=== PATIENT | female | born 1970 | race Caucasian/White ===

== ENCOUNTER 2016-11-15 16:20 | Outpatient (CLI) ==
[2016-06-24 17:14] VITALS: BMI 22.1
[2016-11-15 17:31] LABS: BASOPHILS % (AUTO) 0.3 % (0.0-3.0); EOSINOPHILS % (AUTO) 0.5 % (0.0-7.0); HEMATOCRIT 38.5 % (37.0-47.0); HEMOGLOBIN 12.8 g/dl (12.0-16.0); IMMATURE GRANULOCYTE % (AUTO) 0.5 % (0.0-5.0); LYMPHOCYTES # (AUTO) 1.5 K/uL (0.60-3.4); LYMPHOCYTES % (AUTO) 23.4 (10.0-50.0); MEAN CORPUSCULAR HGB CONC 33.2 (31.8-35.4); MEAN CORPUSCULAR VOLUME 84.2 fl (81.0-99.0); MONOCYTES # (AUTO) 0.3 K/uL (0.4-2.0); MONOCYTES % (AUTO) 5.2 (0-10); NEUTROPHILS # (AUTO) 4.4 K/ul (2.0-6.9); NEUTROPHILS % (AUTO) 70.1; PLATELET COUNT 235 10^3/uL (140-440); RED BLOOD COUNT 4.57 10^6/ul (4.20-5.40); WHITE BLOOD COUNT 6.33 K/ul (4.6-10.2)
[2016-11-15 17:43] LABS: OCCULT BLOOD INTERNAL QC 1 INTERNAL QC VALID; OCCULT BLOOD INTERNAL QC 2 INTERNAL QC VALID; OCCULT BLOOD INTERNAL QC 3 INTERNAL QC VALID; OCCULT BLOOD SAMPLE 1 NEGATIVE (NEGATIVE); OCCULT BLOOD SAMPLE 2 NO SPECIMEN RECEIVED (NEGATIVE); OCCULT BLOOD SAMPLE 3 NO SPECIMEN RECEIVED (NEGATIVE)
[2016-11-15 17:55] LABS: ALBUMIN 3.8 g/dL (3.4-5.0); ALBUMIN/GLOBULIN RATIO 1.31; ANION GAP 9.7; BILIRUBIN,TOTAL 0.28 mg/dL (0.00-1.20); BUN/CREATININE RATIO 9.58; CREATININE 0.73 mg/dL (0.60-1.30); POTASSIUM 3.7 mmol/L (3.5-5.10); TOTAL PROTEIN 6.7 g/dL (6.4-8.2)
[2016-11-16 15:12] LABS: BILIRUBIN,URINE Negative (NEGATIVE); KETONES,URINE Negative (NEGATIVE); LEUKOCYTE ESTERASE ,URINE Negative (NEGATIVE); NITRITE,URINE Negative (NEGATIVE); PH,URINE 5.5 (5-9); PROTEIN,URINE Negative (NEGATIVE); URINE, BLOOD Negative (NEGATIVE)
[2016-11-16 15:13] LABS: ADD URINE MICROSCOPIC NO
== END 2016-11-15 16:21 | disposition home or self-care (01) ==
LOC: LAB 16:20
PROVIDERS: ATTEND General Practice
DX: R10.9 Unspecified abdominal pain (principal); R11.10 Vomiting, unspecified; R63.0 Anorexia; R19.7 Diarrhea, unspecified
CPT/HCPCS: 36415; 80053; 81001; 82272; 85025

== ENCOUNTER 2016-11-16 14:25 | Outpatient (CLI) ==
[2016-06-24 17:14] VITALS: BMI 22.1
== END 2016-11-16 14:26 | disposition home or self-care (01) ==
LOC: LAB 14:25
PROVIDERS: ATTEND General Practice
DX: R10.9 Unspecified abdominal pain (principal); R11.10 Vomiting, unspecified; R63.0 Anorexia

== ENCOUNTER 2016-11-18 18:15 | Outpatient (CLI) | payer OTHER ==
[2016-06-24 17:14] VITALS: BMI 22.1
[2016-11-18] MEDS ORDERED: D5%-NS-KCL 20 MEQ/L IV SOL 1,000 ML IV STA (18:28)
[2016-11-18 18:44] VITALS: BP 98/63; TEMP 97.6
== END 2016-11-18 22:35 | disposition home or self-care (01) ==
LOC: OUTPT 18:15
PROVIDERS: ATTEND General Practice
DX: E86.0 Dehydration (principal)
CPT/HCPCS: 96360; 96361

== ENCOUNTER 2016-12-09 11:03 | Outpatient (CLI) ==
[2016-06-24 17:14] VITALS: BMI 22.1
[2016-12-09 13:17] LABS: BILIRUBIN,URINE Negative (NEGATIVE); KETONES,URINE Negative (NEGATIVE); LEUKOCYTE ESTERASE ,URINE Negative (NEGATIVE); NITRITE,URINE Negative (NEGATIVE); PROTEIN,URINE Negative (NEGATIVE); URINE, BLOOD Negative (NEGATIVE)
[2016-12-09 13:19] LABS: ADD URINE MICROSCOPIC NO
== END 2016-12-09 11:04 | disposition home or self-care (01) ==
LOC: LAB 11:03
PROVIDERS: ATTEND General Practice
DX: R10.9 Unspecified abdominal pain (principal)
CPT/HCPCS: 81001

== ENCOUNTER 2017-04-27 09:39 | Outpatient (CLI) ==
[2016-06-24 17:14] VITALS: BMI 22.1
[2017-04-27 10:06] LABS: BASOPHILS % (AUTO) 0.4 % (0.0-3.0); EOSINOPHILS % (AUTO) 0.5 % (0.0-7.0); HEMATOCRIT 44.4 % (37.0-47.0); HEMOGLOBIN 14.4 g/dl (12.0-16.0); IMMATURE GRANULOCYTE % (AUTO) 0.2 % (0.0-5.0); LYMPHOCYTES # (AUTO) 1.8 K/uL (0.60-3.4); LYMPHOCYTES % (AUTO) 31.7 (10.0-50.0); MEAN CORPUSCULAR HGB CONC 32.4 (31.8-35.4); MEAN CORPUSCULAR VOLUME 86.2 fl (81.0-99.0); MONOCYTES # (AUTO) 0.4 K/uL (0.4-2.0); MONOCYTES % (AUTO) 6.7 (0-10); NEUTROPHILS # (AUTO) 3.4 K/ul (2.0-6.9); NEUTROPHILS % (AUTO) 60.5; PLATELET COUNT 264 10^3/uL (140-440); RED BLOOD COUNT 5.15 10^6/ul (4.20-5.40); WHITE BLOOD COUNT 5.68 K/ul (4.6-10.2)
[2017-04-27 10:16] LABS: ALBUMIN 4.2 g/dL (3.4-5.0); ALBUMIN/GLOBULIN RATIO 1.17; ANION GAP 14.8; BILIRUBIN,TOTAL 0.53 mg/dL (0.00-1.20); BUN/CREATININE RATIO 10.97; CALCIUM 10.2 mg/dL (8.2-10.2); CREATININE 0.82 mg/dL (0.60-1.30); POTASSIUM 3.8 mmol/L (3.5-5.10); TOTAL PROTEIN 7.8 g/dL (6.4-8.2)
[2017-04-27 10:19] LABS: BILIRUBIN,URINE Negative (NEGATIVE); KETONES,URINE Negative (NEGATIVE); LEUKOCYTE ESTERASE ,URINE Negative (NEGATIVE); NITRITE,URINE Negative (NEGATIVE); PROTEIN,URINE Negative (NEGATIVE); URINE, BLOOD Trace-intact (NEGATIVE)
[2017-04-27 10:30] LABS: ADD URINE MICROSCOPIC YES
--- NOTE | 2017-04-27 10:37 | CT ---
EXAM: CT of the abdomen pelvis without contrast History: Generalized abdominal pain. Comparison: CT abdomen pelvis 06/24/2016 Technique: Multiplanar CT images through the abdomen pelvis were obtained without the administration of IV contrast Findings: Lung bases are free of consolidation. No acute osseous abnormalities. No renal stones and no hydronephrosis. Previous cholecystectomy. No focal liver or splenic lesions. No peripancreatic inflammation. Adrenal glands are unremarkable. Postsurgical changes of the kol[place] l. There are a few mildly dilated loops of small bowel within the left abdomen, similar in appearanc e to the prior study. No free air. No ascites. Bladder is not well distended. Adnexal structures appear appropriate for patient's age. No perirectal inflammation. Impression: A few mildly dilated loops of small bowel within the left abdomen, similar appearance to the prior study could represent ileus or mild enteritis. An early developing partial small bowel obs truction is considered less likely but not excluded.
== END 2017-04-27 09:40 | disposition home or self-care (01) ==
LOC: RAD 09:39
PROVIDERS: ATTEND Nurse Practitioner Family
DX: R10.84 Generalized abdominal pain (principal); R11.2 Nausea with vomiting, unspecified
CPT/HCPCS: 36415; 80053; 81001; 82150; 83690; 85025

== ENCOUNTER 2017-11-29 19:41 | Emergency (ER) | payer OTHER ==
[2017-11-29 19:46] VITALS: BP 118/79; TEMP 98.6; BMI 22.2
[2017-11-29] MEDS ORDERED: DUONEB NEB STA (19:54)
[2017-11-29] MEDS ORDERED: ROCEPHIN 1 GM in SODIUM CHLORIDE 50 ML IV STA (19:54)
[2017-11-29] MEDS ORDERED: ROCEPHIN ONE (20:29)
--- NOTE | 2017-11-29 21:07 | CT ---
EXAM: CT chest without contrast HISTORY: Chest pain, productive cough COMPARISON: Chest, 06/24/2016 TECHNIQUE: Serial axial images of the chest were obtained from the lung apices to the upper abdomen without contrast. These were viewed in multiple planes. Axial scans acquired at 5 mm slice thickness es. MPR coronal and sagittal sequences completed FINDINGS: The thyroid is normal. There is no mediastinal or hilar adenopathy within limitations of a noncontrast CT. There is no cardiac enlargement. There is a small amount of coronary artery calci fication both right coronary and left anterior descending and circumflex coronary arteries. There is no obstruction of the trachea or central bronchi. No pulmonary emphysema is seen. There is no pulm onary consolidation or pneumonia seen. Some atelectasis in the lingular lobe and left lower lobe. There is no adrenal enlargement. Postsurgical changes seen left upper quadrant. Impression No pulmonary consolidation or lobar pneumonia. No pulmonary edema is seen. Minimal atelectasis lingular lobe and left lower lobe. Multiple coronary artery calcifications without cardiac enlargement.
--- NOTE | 2017-11-29 22:35 | ED.PDOC ---
General ED Provider: Dr. SELVIN OSEGUERA-ER Chief Complaint: Shortness of Air Stated Complaint: im coughing up brown sputum Time Seen by Physician: 19:55 Mode of Arrival: Walk-In Information Source: Patient, Assisted Living Primary Care Provider: [facility] Nursing and Triage Documentation Reviewed and Agree: Yes Reviewed sepsis parameters & appropriate labs ordered?: Yes System Inflammatory Response Syndrome: Not Applicable Sepsis Protocol: For patient's 13 years and over: Temp is 96.8 and below OR 101 and greater Pulse >90 BPM Resp >20/minute Acutely Altered Mental Status Are patient's symptoms suggestive of a new infection, such as: -Pneumonia -Skin, Soft Tissue -Endocarditis -UTI -Bone, Joint Infection -Implantable Device -Acute Abdominal Infection -Wound Infection -Meningitis -Blood Stream Catheter Infection -Unknown Respiratory Complaint Exam - Respiratory Complaint/Exam Onset/Duration: 3 dyas Symptoms Are: Still present Timing: Intermittent Initial Severity: Mild Current Severity: Mild Character: Reports: Productive cough Aggravating: Reports: URI Associated Signs and Symptoms: Reports: URI. Denies: Rapid breathing, Dyspnea, Fever, Chills, Chest pain, Wheezing, Hemoptysis, Dizziness, Calf swelling, Edema , Nasal congestion, Hoarseness Differential Diagnoses: Chest Wall Pain, Pneumonia, Bronchitis Review of Systems - Review Of Systems Constitutional: Reports: No symptoms Eyes: Reports: No symptoms Ears, Nose, Mouth, Throat: Reports: No symptoms Respiratory: Reports: Cough Cardiac: Reports: No symptoms GI: Reports: No symptoms : Reports: No symptoms Musculoskeletal: Reports: No symptoms Skin: Reports: No symptoms Neurological: Reports: No symptoms Endocrine: Reports: No symptoms Hematologic/Lymphatic: Reports: No symptoms All Other Systems: Reviewed and Negative Past Medical History - Past Medical History Previously Healthy: Yes Endocrine: Reports: DM 2 Cardiovascular: Reports: Other (Hypotension. ) Respiratory: Reports: None Hematological: Reports: Anemia Gastrointestinal: Reports: None Genitourinary: Reports: None Neuro/Psych: Reports: Anxiety, Depression, Bipolar Disorder, Schizophrenia Musculoskeletal: Reports: None Cancer: Reports: None Last Menstrual Period: none - Surgical History General Surgical History: Reports: Tubal ligation, (x2 ), Cholecystectomy, Orthopedic ( right bunionectomy. ), Gastric Bypass - Family History Family History: Reports: None - Social History Smoking Status: Current every day smoker, Heavy tobacco smoker Hx Substance Use: No Alcohol Screening: None Physical Exam - Physical Exam Appearance: Well-appearing Eyes: ALEKSANDR, EOMI, Conjunctiva clear ENT: Ears normal, Nose normal, Oropharynx normal Neck: Supple Respiratory: Crackles, Rhonchi Cardiovascular: RRR, Pulses normal, No rub, No murmur GI/: Soft, Nontender, No masses, Bowel sounds normal, No Organomegaly Musculoskeletal: Normal strength, ROM intact, No edema, No calf tenderness Skin: Warm, Dry, Normal color Neurological: Sensation intact Psychiatric: Affect appropriate, Mood appropriate Interpretation - Radiology Interpretation Radiology Interpretation By: Radiologist Radiology Results: Negative Exam Interpreted: CT Scan - EKG Interpretation Time of EKG #1: 22:35 Rate: Normal Rhythm: Sinus Ectopy: None [place]: NL ST Segment: Normal Interpretation: nsr Critical Care Note - Critical Care Note Total Time (mins): 0 Course - Course Hematology/Chemistry: 11/29/17 20:05 11/29/17 20:05 Orders, Labs, Meds: Lab Review 11/29/17 11/29/17 11/29/17 19:52 19:56 19:56 WBC RBC Hgb Hct MCV MCH MCHC RDW Coeff of Wayne Plt Count Immature Gran % (Auto) Neut % (Auto) Lymph % (Auto) Ector % (Auto) Eos % (Auto) Baso % (Auto) Immature Gran # (Auto) Neut # (Auto) Lymph # (Auto) Ector # (Auto) Eos # (Auto) Baso # (Auto) D-Dimer (Manual) Puncture Site Lb O2 Saturation 100.0 ABG pH 7.629 H* ABG pCO2 22.2 L ABG pO2 148.0 H ABG HCO3 23.3 ABG Total CO2 24 ABG Base Excess 2 [place] Test + FiO2 % 21.0 Sodium Potassium Chloride Carbon Dioxide Anion Gap BUN Creatinine Estimated GFR (MDRD) BUN/Creatinine Ratio Glucose Calcium Total Bilirubin AST ALT Alkaline Phosphatase Total Creatine Kinase Troponin I Total Protein Albumin Globulin Albumin/Globulin Ratio Urine Test Negative Influ A Molecular Assay Negative by naat Influ B Molecular Assay Negative by naat 11/29/17 11/29/17 11/29/17 20:05 20:05 20:05 WBC 6.13 RBC 4.51 Hgb 12.4 Hct 38.0 MCV 84.3 MCH 27.5 MCHC 32.6 RDW Coeff of Wayne 14.8 Plt Count 234 Immature Gran % (Auto) 0.3 Neut % (Auto) 58.9 Lymph % (Auto) 33.6 Ector % (Auto) 6.7 Eos % (Auto) 0.3 Baso % (Auto) 0.2 Immature Gran # (Auto) 0.0 Neut # (Auto) 3.6 Lymph # (Auto) 2.1 Ector # (Auto) 0.4 Eos # (Auto) 0.0 Baso # (Auto) 0.0 D-Dimer (Manual) 409.50 Puncture Site O2 Saturation ABG pH ABG pCO2 ABG pO2 ABG HCO3 ABG Total CO2 ABG Base Excess [place] Test FiO2 % Sodium 141 Potassium 3.3 L Chloride 107 Carbon Dioxide 24 Anion Gap 13.3 BUN 4 L Creatinine 0.66 Estimated GFR (MDRD) 96.00 BUN/Creatinine Ratio 6.06 Glucose 60 L Calcium 9.2 Total Bilirubin 0.3 AST 17 ALT 11 L Alkaline Phosphatase 134 H Total Creatine Kinase 96 Troponin I < 0.0100 Total Protein 6.8 Albumin 3.4 Globulin 3.4 Albumin/Globulin Ratio 1.00 Urine Test Influ A Molecular Assay Influ B Molecular Assay Orders Category Date Time Status ABG DRAW REQUEST Stat CARDIO 11/29/17 19:52 Completed EKG-(ED ONLY) Stat CARDIO 11/29/17 19:52 Completed NEBULIZER TREATMENT Stat CARDIO 11/29/17 19:54 Completed ED IV/MEDIPORT/POWERPORT .ONCE EMERGENCY 11/29/17 19:53 Active ABG Stat LAB 11/29/17 19:52 Completed BLOOD CULTURE (ED ONLY) Stat LAB 11/29/17 20:11 Received CBC W/ AUTO DIFF Stat LAB 11/29/17 20:05 Completed COMPREHENSIVE METABOLIC PANEL Stat LAB 11/29/17 20:05 Completed CREATINE KINASE Stat LAB 11/29/17 20:05 Completed D-DIMER Stat LAB 11/29/17 20:05 Completed FLU A/B MOLECULAR Stat LAB 11/29/17 19:56 Completed TROPONIN I Stat LAB 11/29/17 20:05 Completed URINE Stat LAB 11/29/17 19:56 Completed 0.9 % Sodium Chloride [Saline Flush] MEDS 11/29/17 19:53 Ordered 1 syr IVF PRN PRN Ceftriaxone Sodium [Rocephin] MEDS 11/29/17 20:29 Discontinued 1 gm .ROUTE .STK-MED ONE Ceftriaxone Sodium [Rocephin] 1 gm MEDS 11/29/17 19:54 Discontinued 0.9 % Sodium Chloride [Sodium Chloride] 50 ml IV ONCE Ipratropium/Albuterol Neb [Duoneb] MEDS 11/29/17 19:54 Discontinued 1 vial NEB ONCE STA CT CHEST W/O CONTRAST Stat RADS 11/29/17 19:53 Completed Medications Generic Name Dose Route Start Last Admin Trade Name Freq PRN Reason Stop Dose Admin Sodium Chloride 1 syr 11/29/17 19:53 Saline Flush IVF PRN PRN To flush IV Discontinued Medications Generic Name Dose Route Start Last Admin Trade Name Freq PRN Reason Stop Dose Admin Albuterol/Ipratropium 1 vial 11/29/17 19:54 11/29/17 20:27 Duoneb NEB 11/29/17 19:55 1 vial ONCE STA Administration Ceftriaxone Sodium 1 gm/ 50 mls @ 75 mls/hr 11/29/17 19:54 11/29/17 20:33 Sodium Chloride IV 11/29/17 20:33 75 mls/hr ONCE STA Administration Vital Signs: Temp Pulse Resp BP Pulse Ox 11/29/17 19:41 98.6 F 85 20 118/79 98 Departure - Departure Time of Disposition: 22:35 Disposition: HOME SELF-CARE Discharge Problem: Bronchitis Instructions: Acute Bronchitis (ED) Condition: Good Pt referred to PMD for follow-up: Yes IPMP verified?: No Additional Instructions: augmentin 875mg bid x 7days plus mdp=--avoid cigs--f/u with pcp Allergies/Adverse Reactions: Allergies No Known Drug Allergies Adverse Reaction (Verified 11/29/17 19:45) Home Medications: Ambulatory Orders Multivit-Min/Iron/Folic/Lutein [Centrum Silver Women Tablet] 1 each PO DAILY 04/22 Docusate Sodium [Stool Softener] 100 mg PO TID #90 tab-cap 05/23/17 Alprazolam 1 mg PO QID 05/24/17 Escitalopram Oxalate [Lexapro] 10 mg PO DAILY 05/24/17 Trazodone HCl 100 mg PO BEDTIME 05/24/17 Venlafaxine HCl [Effexor Xr] 150 mg PO DAILY 05/24/17 Ziprasidone HCl 40 mg PO DAILY 05/24/17 Omeprazole [Prilosec] 20 mg PO QDAC 11/29/17 Disposition Discussed With: Patient
== END 2017-11-29 22:40 | disposition home or self-care (01) ==
LOC: ED 19:41
DX: J20.9 Acute bronchitis, unspecified (principal); F17.210 Nicotine dependence, cigarettes, uncomplicated
CPT/HCPCS: 36415; 80053; 81025; 82550; 82803; 84484; 85025; 85379; 87040; 87502; 93005; 93010; 94640; 96365; 99283

== ENCOUNTER 2018-08-23 09:04 | Outpatient (CLI) ==
--- NOTE | 2018-08-23 09:46 | CT ---
EXAM: CT of the head without contrast History: Head trauma. Technique: Multiplanar CT images through the head were obtained without the administration of IV con trast Findings: The visualized paranasal sinuses and mastoid air cells are clear in general. No acute anjelica varial abnormalities. Intracranially the ventricular and cisternal spaces are normal in size, shape and configuration for a patient of this age. No dominant mass or midline shift. No hydrocephalous. No acute intracranial hemorrhage or abnormal extraaxial fluid collections. Impression: No acute intracranial process.
--- NOTE | 2018-08-23 09:50 | DI ---
EXAM: Five views of the lumbar spine. History: Lower back trauma. Findings: No acute fracture or subluxation of the lumbar spine. Six lumbar type vertebral bodies. Moderate disc space narrowing at L6, S1. Mild to moderate disc space narrowing seen elsewhere. Ther e is moderate facet hypertrophy within the lower lumbar spine. Prominent anterior osteophyte at L2-L 3. Impression: 1. No acute osseous abnormality of the lumbar spine. 2. Degenerative changes
== END 2018-08-23 09:05 | disposition home or self-care (01) ==
LOC: RAD 09:04
PROVIDERS: ATTEND General Practice
DX: M79.89 Other specified soft tissue disorders (principal); R60.0 Localized edema; R53.83 Other fatigue; R52 Pain, unspecified; T14.8XXA Other injury of unspecified body region, initial encounter; M54.9 Dorsalgia, unspecified; Z79.899 Other long term (current) drug therapy; Z13.6 Encounter for screening for cardiovascular disorders; W19.XXXA Unspecified fall, initial encounter
CPT/HCPCS: 36415; 80053; 84439; 84443; 84480; 84481; 85008; 85025; 85651; 86038; 86140

== ENCOUNTER 2018-08-29 10:43 | Outpatient (CLI) | payer OTHER | END 2018-08-29 10:44 | disposition home or self-care (01) | LOC: RHC-LAB 10:43 | PROVIDERS: ATTEND General Practice | DX: R07.81 Pleurodynia (principal); R63.4 Abnormal weight loss; Z79.899 Other long term (current) drug therapy | CPT/HCPCS: 81001 ==

== ENCOUNTER 2018-09-07 10:54 | Outpatient (CLI) | payer OTHER ==
[2018-08-29 17:42] VITALS: BMI 22.1
== END 2018-09-07 10:55 | disposition home or self-care (01) ==
LOC: RHC-LAB 10:54
PROVIDERS: ATTEND General Practice
DX: D64.9 Anemia, unspecified (principal)
CPT/HCPCS: 36415; 85008; 85025

== ENCOUNTER 2018-10-12 09:46 | Emergency (ER) | payer OTHER ==
[2018-10-12 09:54] VITALS: BP 123/72; TEMP 98.6; BMI 22.9
--- NOTE | 2018-10-12 11:40 | CT ---
EXAM: CT head without contrast HISTORY: Syncope with fall and laceration over the right eye COMPARISON: CT head 08/23/2018 TECHNIQUE: Serial axial images of the brain were obtained from the skull base to the vertex without IV contrast. FINDINGS: The ventricles, cisterns and sulci are normal. The bright-white matter junction is maintain ed. No midline shift or mass is identified. There is no abnormal intra or extra-axial fluid collect ion. The paranasal sinuses and mastoid air cells are clear. The osseous calvarium is intact. There is a small laceration in the periorbital soft tissues. IMPRESSION: Small laceration of the right periorbital soft tissues with no underlying fracture or acute intracran ial hemorrhage.
--- NOTE | 2018-10-12 11:42 | CT ---
EXAM: CT cervical spine. HISTORY: Fall, cervical spine pain. TECHNIQUE: CT cervical spine without contrast. Detailed axial sections. Coronal and sagittal re-fo rmations. COMPARISON: None FINDINGS: No fracture or subluxation. Vertebral body heights are maintained and the facet joints are covered. Lateral masses of C1 and C2 are normally aligned and the odontoid process is intact. Degenerative disc and facet disease of the spine is present most apparent at C6/C7 where there is at least mild ce ntral canal stenosis and neural foraminal narrowing bilaterally. No paraspinal hematoma. IMPRESSION: 1. No fracture or subluxation. 2. Degenerative changes of the spine.
--- NOTE | 2018-10-12 12:18 | ED.PDOC ---
General ED Provider: Dr. JG NAGY Chief Complaint: Laceration Stated Complaint: syncope , laceration of right eyebrow Time Seen by Physician: 10:00 (see photos) Mode of Arrival: Walk-In Information Source: Patient Exam Limitations: No limitations [facility] Care [facility] Nursing and Triage Documentation Reviewed and Agree: Yes Does patient meet sepsis criteria?: No System Inflammatory Response Syndrome: Not Applicable Sepsis Protocol: For patient's 13 years and over: Temp is 96.8 and below OR 101 and greater Pulse >90 BPM Resp >20/minute Acutely Altered Mental Status Are patient's symptoms suggestive of a new infection, such as: -Pneumonia -Skin, Soft Tissue -Endocarditis -UTI -Bone, Joint Infection -Implantable Device -Acute Abdominal Infection -Wound Infection -Meningitis -Blood Stream Catheter Infection -Unknown Trauma/Injury Complaint Exam - Trauma Complaint/Exam Location of Pain or Injury: Reports: Face, Neck Mechanism of Injury: Reports: Fall (/syncope lasted a few seconds rapid recovery no motor or sensory issues noted ) Onset/Duration: this morning Symptoms Are: Resolved Initial Severity: Mild Current Severity: None Character: Reports: Dull (head ache ) Aggravating: Reports: None Alleviating: Reports: Rest Associated Signs and Symptoms: Reports: Bruising, Swelling (right orbit) : No Nexus Low Risk Criteria: No post-midline CS tender, No evidence of intoxicat., No Altered LOC, No focal neuro deficit, No distracting injuries Immobilization Removed Post Exam: No Glascow Coma Scale (see protocol): 15 Trauma Findings: Present: Neck tenderness. Absent: [place] eyes, Hemotympanum, Nasal deformity, Dental tenderness, Neck spasm, SubQ Air, Crepitus, Airway obstructed, Trachea displaced, Labored respirations, Decreased breath sounds, Muffled heart sounds, Weak pulses, Absent pulses, Abdominal distention, Pelvic tenderness, Pelvic instability, Back tenderness, Back malalignment, Limited ROM , Agitated, Uncooperative Skin Findings: Present: Abrasion (see photo) Differential Diagnoses: Abrasion Review of Systems - Review Of Systems Constitutional: Reports: No symptoms Eyes: Reports: No symptoms Ears, Nose, Mouth, Throat: Reports: No symptoms Respiratory: Reports: No symptoms Cardiac: Reports: Syncope GI: Reports: No symptoms : Reports: No symptoms Musculoskeletal: Reports: No symptoms Skin: Reports: No symptoms Neurological: Reports: No symptoms Endocrine: Reports: No symptoms Hematologic/Lymphatic: Reports: No symptoms All Other Systems: Reviewed and Negative Past Medical History - Past Medical History Previously Healthy: Yes Endocrine: Reports: DM 2 Cardiovascular: Reports: Other (Hypotension. ) Respiratory: Reports: None Hematological: Reports: Anemia Gastrointestinal: Reports: None Genitourinary: Reports: None Neuro/Psych: Reports: Anxiety, Depression, Bipolar Disorder, Schizophrenia Musculoskeletal: Reports: None Cancer: Reports: None Last Menstrual Period: 2 yrs ago - Surgical History General Surgical History: Reports: Tubal ligation, (x2 ), Cholecystectomy, Orthopedic ( right bunionectomy. ), Gastric Bypass - Family History Family History: Reports: None - Social History Smoking Status: Former smoker Hx Substance Use: No Alcohol Screening: None Physical Exam - Physical Exam Appearance: Well-appearing, No pain distress, Well-nourished Eyes: ALEKSANDR, EOMI, Conjunctiva clear ENT: Ears normal, Nose normal, Oropharynx normal Respiratory: Airway patent, Breath sounds clear, Breath sounds equal, Respirations nonlabored Cardiovascular: RRR, Pulses normal, No rub, No murmur GI/: Soft, Nontender, No masses, Bowel sounds normal, No Organomegaly Musculoskeletal: Normal strength, ROM intact, No edema, No calf tenderness Skin: Warm, Dry (1cm laceration no f/b see photos . above right globe ), Normal color Neurological: Sensation intact, Motor intact, Reflexes intact, Cranial nerves intact, Alert, Oriented Psychiatric: Affect appropriate, Mood appropriate Interpretation - Radiology Interpretation Radiology Interpretation By: Radiologist Radiology Results: No acute changes Exam Interpreted: CT Scan Re-Evaluation - Re-Evaluation Time of Re-Evaluation: 10:00 Status: Improved Vital Signs Stable: Yes Pain Level: 0 Appearance: NAD Lungs: Clear Skin: Warm and Dry Neuro: Alert and Oriented X3 CV: RRR - Re-Evaluation Time of Re-Evaluation: 00:00 Vital Signs Stable: Yes Pain Level: 0 Appearance: NAD Skin: Warm and Dry Neuro: Alert and Oriented X3 CV: RRR Critical Care Note - Critical Care Note Total Time (mins): 0 Course - Course Hematology/Chemistry: 10/12/18 10:50 10/12/18 10:50 Orders, Labs, Meds: Lab Review 10/12/18 10/12/18 10/12/18 10:50 10:50 10:50 WBC 8.87 RBC 4.71 Hgb 11.3 L Hct 36.8 L MCV 78.1 L MCH 24.0 L MCHC 30.7 L RDW Coeff of Wayne 24.3 H Plt Count 204 Immature Gran % (Auto) 0.3 Neut % (Auto) 81.2 Lymph % (Auto) 14.3 Frio % (Auto) 3.8 Eos % (Auto) 0.3 Baso % (Auto) 0.1 Immature Gran # (Auto) 0.0 Neut # (Auto) 7.2 H Lymph # (Auto) 1.3 Frio # (Auto) 0.3 L Eos # (Auto) 0.0 Baso # (Auto) 0.0 Anisocytosis 1+ PT 10.0 INR 1.00 APTT 23.8 L Sodium 140.9 Potassium 3.94 Chloride 106.4 Carbon Dioxide 29.4 Anion Gap 9.04 BUN 8.1 Creatinine 0.72 Estimated GFR (MDRD) 86.00 BUN/Creatinine Ratio 11.25 Glucose 85.9 Calcium 9.01 Total Bilirubin 0.26 AST 20.8 ALT 11.8 Alkaline Phosphatase 76.9 Total Creatine Kinase 61.4 Troponin I < 0.012 Total Protein 6.57 Albumin 3.84 Globulin 2.73 Albumin/Globulin Ratio 1.40 Orders Category Date Time Status CBC W/ AUTO DIFF Stat LAB 10/12/18 10:50 Completed COMPREHENSIVE METABOLIC PANEL Stat LAB 10/12/18 10:50 Completed CREATINE KINASE Stat LAB 10/12/18 10:50 Completed PARTIAL THROMBOPLASTIN TIME Stat LAB 10/12/18 10:50 Completed PT WITH INR Stat LAB 10/12/18 10:50 Completed RBC MORPHOLOGY Stat LAB 10/12/18 10:50 Completed TROPONIN I Stat LAB 10/12/18 10:[address] CERVICAL SPINE W/O CONTRAST Stat RADS 10/12/18 10:[address] HEAD W/O CONTRAST Stat RADS 10/12/18 10:42 Completed Vital Signs: Temp Pulse Resp BP Pulse Ox 10/12/18 09:46 98.6 F 74 20 123/72 98 Departure - Departure Time of Disposition: 12:20 Disposition: HOME SELF-CARE Discharge Problem: Laceration - injury, Syncope and collapse Instructions: Syncope (ED), Lightheadedness (ED), Head Injury (ED), Laceration (ED) Condition: Good Pt referred to PMD for follow-up: Yes IPMP verified?: No Additional Instructions: Please call your Family Physician as soon as possible to schedule a follow-up appointment.for any issues call or return . Allergies/Adverse Reactions: Allergies No Known Drug Allergies Adverse Reaction (Verified 10/12/18 09:55) Home Medications: Ambulatory Orders Multivit-Min/Iron/Folic/Lutein [Centrum Silver Women Tablet] 1 each PO DAILY 04/22 Docusate Sodium [Stool Softener] 100 mg PO DAILY #90 tab-cap 05/23/17 Trazodone HCl 100 mg PO BEDTIME 05/24/17 Ziprasidone HCl 40 mg PO DAILY 05/24/17 Omeprazole [Prilosec] 20 mg PO QDAC 11/29/17 Alprazolam [Alprazolam ER] 1 mg PO DAILY 08/22/18 Alprazolam [Xanax] 1 mg PO QID PRN 08/22/18 Duloxetine HCl [Cymbalta] 60 mg PO DAILY 08/22/18 Escitalopram Oxalate [Lexapro] 10 mg PO DAILY 08/22/18 Ondansetron [Ondansetron Odt] 2 mg PO DAILY 08/22/18 Methylphenidate HCl [Ritalin 10 mg] 10 mg PO DIRECTED 10/12/18 Methylphenidate HCl [Ritalin] 20 mg PO DAILY 10/12/18
== END 2018-10-12 12:50 | disposition home or self-care (01) ==
LOC: ED 09:46
DX: S01.111A Laceration without foreign body of right eyelid and periocular area, initial encounter (principal); S05.11XA Contusion of eyeball and orbital tissues, right eye, initial encounter; M54.2 Cervicalgia; R55 Syncope and collapse; D64.9 Anemia, unspecified; E11.9 Type 2 diabetes mellitus without complications; Z79.899 Other long term (current) drug therapy; Z98.84 Bariatric surgery status
CPT/HCPCS: 36415; 80053; 82550; 84484; 85008; 85025; 85610; 85730; 93005; 93010; 99283

== ENCOUNTER 2018-10-16 08:32 | Outpatient (CLI) ==
--- NOTE | 2018-10-16 09:04 | DI ---
EXAM: Three views of the right ankle. History: Right ankle pain. Findings: No acute fracture or dislocation. Grossly intact hardware seen within the calcaneus and m etatarsals. Calcaneal enthesiopathy and calcification seen within the distal Achilles tendon. Mild polyarticular joint space narrowing. Impression: No acute osseous abnormality. Other findings as detailed above.
== END 2018-10-16 08:33 | disposition home or self-care (01) ==
LOC: RAD 08:32
PROVIDERS: ATTEND Nurse Practitioner Family
DX: M25.571 Pain in right ankle and joints of right foot (principal); E16.2 Hypoglycemia, unspecified; R55 Syncope and collapse
CPT/HCPCS: 36415; 83036

== ENCOUNTER 2019-01-31 12:30 | Emergency (ER) ==
[2019-01-31 12:43] VITALS: BP 117/71; TEMP 98.4; BMI 21.1
--- NOTE | 2019-01-31 14:13 | ED.PDOC ---
General ED Provider: Dr. SELVIN BLACKMAN Chief Complaint: Non-specific Complaint Stated Complaint: CC: low back pain after fall off porch. Pain in lt side of lower lumbar region. No raduclating features. Slid off porch 2 weeks ago.States landed on left hip. Pain since. States she has muscle cramps "all over my body.". Patient states she's lost 10 lb wt loss over past 3 months. History of gastric bypass surgery. States is supposed to maintain approx [address] Richards's office earlier today and was instructed to come to ER. Also states she has a stomach illness last week with diarrhea stoolsX 2 episodes Time Seen by Physician: 14:00 Mode of Arrival: Walk-In Information Source: Patient Exam Limitations: No limitations Primary Care Provider: ILDA MENJIVAR Nursing and Triage Documentation Reviewed and Agree: Yes Does patient meet sepsis criteria?: No System Inflammatory Response Syndrome: Not Applicable Sepsis Protocol: For patient's 13 years and over: Temp is 96.8 and below OR 101 and greater Pulse >90 BPM Resp >20/minute Acutely Altered Mental Status Are patient's symptoms suggestive of a new infection, such as: -Pneumonia -Skin, Soft Tissue -Endocarditis -UTI -Bone, Joint Infection -Implantable Device -Acute Abdominal Infection -Wound Infection -Meningitis -Blood Stream Catheter Infection -Unknown Musculoskeletal Complaint Exam - Back Pain Complaint/Exam Onset/Duration: 1d Symptoms Are: Still present Timing: Intermittent Episodes Lasting: Minutes Initial Severity: Mild Current Severity: Mild Location: Reports: Discrete Character: Reports: Sharp, Dull, Aching Aggravating: Reports: None TAD Risk Factors: Reports: None AAA Risk Factors: Reports: None Cauda Equina Risk Factors: Reports: None Epidural Abcess Risk Factors: Reports: None Related Surgical History: Reports: None Focal Tenderness: Yes Paraspinal Muscle Tenderness: Yes Paraspinal Muscle Spasm: No Scoliosis: No Lordosis: No Kyphosis: No SLR Test: Right Negative, Left Negative Hip Motion Testing Pain: Right Negative, Left Negative Differential Diagnoses: Strain Review of Systems - Review Of Systems Constitutional: Reports: No symptoms Eyes: Reports: No symptoms Ears, Nose, Mouth, Throat: Reports: No symptoms Respiratory: Reports: No symptoms Cardiac: Reports: No symptoms GI: Reports: No symptoms : Reports: No symptoms Musculoskeletal: Reports: Back pain, Muscle pain, Muscle stiffness Skin: Reports: No symptoms Neurological: Reports: No symptoms Endocrine: Reports: No symptoms Hematologic/Lymphatic: Reports: No symptoms All Other Systems: Reviewed and Negative Past Medical History - Past Medical History Previously Healthy: Yes Endocrine: Reports: DM 2 Cardiovascular: Reports: Other (Hypotension. ) Respiratory: Reports: None Hematological: Reports: Anemia Gastrointestinal: Reports: None Genitourinary: Reports: None Neuro/Psych: Reports: Anxiety, Depression, Bipolar Disorder, Schizophrenia Musculoskeletal: Reports: None Cancer: Reports: None Last Menstrual Period: 2 years - Surgical History General Surgical History: Reports: Tubal ligation, (x2 ), Cholecystectomy, Orthopedic ( right bunionectomy. ), Gastric Bypass - Family History Family History: Reports: None - Social History Smoking Status: Current some day smoker Hx Substance Use: No Alcohol Screening: None Physical Exam - Physical Exam Appearance: Ill-appearing, Thin Ill-appearing: Mild Pain Distress: Mild Eyes: ALEKSANDR, EOMI, Conjunctiva clear ENT: Ears normal, Nose normal, Oropharynx normal Neck: Supple Respiratory: Airway patent Cardiovascular: RRR, Pulses normal, No rub, No murmur GI/: Soft, Nontender, No masses, Bowel sounds normal, No Organomegaly Musculoskeletal: Normal strength, ROM intact (tenderness LT LS/Lt SI region ) Skin: Warm, Dry, Normal color Neurological: Sensation intact Psychiatric: Affect appropriate, Mood appropriate Interpretation - Radiology Interpretation Radiology Interpretation By: Radiologist (lumbar facet joint disease. Deg disc disease) Radiology Results: No acute changes Exam Interpreted: CT Scan (lumbar and pelvic CT-deg disc disease, bulging disc) Critical Care Note - Critical Care Note Total Time (mins): 0 Course - Course Hematology/Chemistry: 01/31/19 16:07 01/31/19 16:07 Orders, Labs, Meds: Lab Review 01/31/19 01/31/19 01/31/19 14:35 14:35 16:07 WBC 5.57 RBC 5.00 Hgb 13.6 Hct 42.5 MCV 85.0 MCH 27.2 MCHC 32.0 RDW Coeff of [place] 14.7 Plt Count 269 Immature Gran % (Auto) 0.5 Neut % (Auto) 52.2 Lymph % (Auto) 38.8 [place] % (Auto) 7.0 Eos % (Auto) 1.1 Baso % (Auto) 0.4 Immature Gran # (Auto) 0.0 Neut # (Auto) 2.9 Lymph # (Auto) 2.2 [place] # (Auto) 0.4 Eos # (Auto) 0.1 Baso # (Auto) 0.0 Sodium Potassium Chloride Carbon Dioxide Anion Gap BUN Creatinine Estimated GFR (MDRD) BUN/Creatinine Ratio Glucose Calcium Magnesium Total Bilirubin AST ALT Alkaline Phosphatase Total Creatine Kinase Total Protein Albumin Globulin Albumin/Globulin Ratio Urine Color Yellow Urine Clarity Clear Urine pH 6.0 Ur Specific [place] <=1.005 Urine Protein Negative Urine Glucose (UA) Negative Urine Ketones Negative Urine Blood Negative Urine Nitrite Negative Urine Bilirubin Negative Urine Urobilinogen 1.0 Ur Leukocyte Esterase Negative Urine Opiates Screen Negative Ur Oxycodone Screen Negative Urine Methadone Screen Negative Ur Propoxyphene Screen Negative Ur Barbiturates Screen Negative U Tricyclic Antidepress Negative Ur Phencyclidine Scrn Negative Ur Amphetamine Screen Negative U Methamphetamines Scrn Negative U Benzodiazepines Scrn Positive Urine Cocaine Screen Negative U Cannabinoids Screen Positive 01/31/19 16:07 WBC RBC Hgb Hct MCV MCH MCHC RDW Coeff of [place] Plt Count Immature Gran % (Auto) Neut % (Auto) Lymph % (Auto) [place] % (Auto) Eos % (Auto) Baso % (Auto) Immature Gran # (Auto) Neut # (Auto) Lymph # (Auto) [place] # (Auto) Eos # (Auto) Baso # (Auto) Sodium 138.5 Potassium 3.50 Chloride 99.0 Carbon Dioxide 31.6 H Anion Gap 11.40 BUN 7.2 Creatinine 0.78 Estimated GFR (MDRD) 79.00 BUN/Creatinine Ratio 9.23 Glucose 89.6 Calcium 9.22 Magnesium 1.96 Total Bilirubin 0.69 AST 25.0 ALT 15.0 Alkaline Phosphatase 76.8 Total Creatine Kinase 31.7 Total Protein 6.93 Albumin 4.20 Globulin 2.73 Albumin/Globulin Ratio 1.53 Urine Color Urine Clarity Urine pH Ur Specific [place] Urine Protein Urine Glucose (UA) Urine Ketones Urine Blood Urine Nitrite Urine Bilirubin Urine Urobilinogen Ur Leukocyte Esterase Urine Opiates Screen Ur Oxycodone Screen Urine Methadone Screen Ur Propoxyphene Screen Ur Barbiturates Screen U Tricyclic Antidepress Ur Phencyclidine Scrn Ur Amphetamine Screen U Methamphetamines Scrn U Benzodiazepines Scrn Urine Cocaine Screen U Cannabinoids Screen Orders Category Date Time Status EKG-(ED ONLY) Stat CARDIO 01/31/19 16:07 Completed CBC W/ AUTO DIFF Stat LAB 01/31/19 16:07 Completed CMP [COMPREHENSIVE METABOLIC PANEL] Stat LAB 01/31/19 16:07 Completed CPK [CREATINE KINASE] Stat LAB 01/31/19 16:07 Completed MAGNESIUM Stat LAB 01/31/19 16:07 Completed UA [URINALYSIS C & S IF INDICATED] Stat LAB 01/31/19 14:35 Completed URINE DRUG SCREEN (RAPID FOR ED) [DRUG SCREEN, URINE, LAB 01/31/19 14:35 Completed RAPID] Stat CT LUMBAR SPINE W/O CONTRAST Stat RADS 01/31/19 14:[address] PELVIS W/O CONTRAST Stat RADS 01/31/19 14:11 Completed Vital Signs: Temp Pulse Resp BP Pulse Ox 01/31/19 12:31 98.4 F 74 20 117/71 95 Departure - Departure Time of Disposition: 15:30 Disposition: HOME SELF-CARE Discharge Problem: Low back strain, Strain of hip, Lumbar paraspinal muscle spasm Instructions: Back Pain (ED), Degenerative Disc Disease (ED) Condition: Good Pt referred to PMD for follow-up: Yes IPMP verified?: No Additional Instructions: May take tylenol for pain Follow up Dr Luna in 1 wk Allergies/Adverse Reactions: Allergies No Known Drug Allergies Adverse Reaction (Verified 01/31/19 12:43) Home Medications: Ambulatory Orders Multivit-Min/Iron/Folic/Lutein [Centrum Silver Women Tablet] 1 each PO DAILY 04/22 Docusate Sodium [Stool Softener] 100 mg PO DAILY #90 tab-cap 05/23/17 Trazodone HCl 100 mg PO BEDTIME 05/24/17 Ziprasidone HCl 40 mg PO DAILY 05/24/17 Omeprazole [Prilosec] 20 mg PO QDAC 11/29/17 Alprazolam [Alprazolam ER] 1 mg PO DAILY 08/22/18 Alprazolam [Xanax] 1 mg PO TID 08/22/18 Duloxetine HCl [Cymbalta] 60 mg PO DAILY 08/22/18 Escitalopram Oxalate [Lexapro] 10 mg PO DAILY 08/22/18 Ondansetron [Ondansetron Odt] 2 mg PO DAILY 08/22/18 Methylphenidate HCl [Ritalin 10 mg] 10 mg PO DAILY 10/12/18 Cyanocobalamin (Vitamin B-12) [B-12] 500 mcg SL DAILY 10/15/18 Ferrous Sulfate 65 mg PO 1 every other day 10/15/18 Disposition Discussed With: Patient
--- NOTE | 2019-01-31 15:10 | CT ---
EXAM: CT pelvis HISTORY: Pain after injury TECHNIQUE: CT pelvis without contrast. Multiplanar images provided. FINDINGS: There is no intrapelvic ascites. The uterus appears grossly normal. Urinary bladder is decompressed , grossly unremarkable. There is no inflammatory infiltration of the abdominal fat or convincing lawrence dence of bowel obstruction. Lower ventral abdominal wall is intact. There is no peripheral soft tis miah hematoma. The hips are intact. No pelvic is seen. 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 See also s andressa mckeon CT lumbar spine report. IMPRESSION: 1. No acute injuries identified.
--- NOTE | 2019-01-31 15:11 | CT ---
Examination: CT lumbar spine without contrast Clinical history: Fall with pain Detailed thin slice axial images extend from the lower thoracic region through the lower sacrum. Ref ormatted 2-D coronal and sagittal images were reviewed. There is mild, lumbar disc space narrowing a t each level, sparing the L4-L5 disc. There is no loss of axial vertebral height. Spinous processes appear intact. Facet arthrosis is most notable at the L4-L5 and L5-S1 bilaterally. T12-L1: Posterior disc space is smooth. Cord caliber satisfactory. No neural foramen narrowing. L1-L2: There is mild broad-based annular bulging. Anterior sac is minimally flattened. The exiting L1 nerve roots appear intact. L2-L3: Broad-based annular bulging is present resulting in subtle concave effacement of the anterior thecal sac. AP diameter thecal sac at the disc level is 9 mm. There is mild ligamentum flavum thic kening. Minimal facet degenerative change. L3-L4: Broad-based annular bulging is again identified. There is minimal triangulation of the theca l sac. There is moderate ligamentum flavum thickening. Mild facet arthrosis is identified. No disp lacement of the exiting L3 nerve roots. L4-L5: Posterior disc margin is smooth with generalized mild annular bulging. Mild flattening of th e anterior thecal sac. At the disc level. AP diameter of the thecal sac measures 16 mm. Ligamentum flavum remains thickened. No displacement of the exiting L4 nerve roots. There is moderate facet a rthrosis. Mild left neural foramen narrowing. L5-S1: The pericecal fat planes are intact. The L5 nerve roots are similar caliber without displace ment. The intra canal S1 nerve roots appear intact. There is tapering of the thecal sac at this lev el. There is a bat wing transverse process on the left forming a pseudoarthrosis with the left sacra l base. There is moderate to severe facet arthrosis. Impression: 1. No acute osseous injury involving the lumbar spine. 2. Mild right SI joint degenerative disease. 3. Annular bulging at several levels. Mild central canal narrowing at L3-4. Mild left neural elke en narrowing at L4- L5. 4. Lower lumbosacral facet arthrosis.
== END 2019-01-31 17:08 | disposition home or self-care (01) ==
LOC: ED 12:30
DX: S39.012A Strain of muscle, fascia and tendon of lower back, initial encounter (principal); S76.019A Strain of muscle, fascia and tendon of unspecified hip, initial encounter; R25.2 Cramp and spasm; R63.4 Abnormal weight loss; W17.89XA Other fall from one level to another, initial encounter; Z98.84 Bariatric surgery status
CPT/HCPCS: 36415; 80053; 80306; 81001; 82550; 83735; 85025; 93005; 93010; 99283